=== PATIENT | male | born 1950 | race Caucasian/White ===

== ENCOUNTER 2020-06-04 11:08 | Emergency (ER) | payer OTHER ==
[~2020-06-04] VITALS: Ht 175.3 cm; Wt 70.3 kg
[2020-06-04] MEDS ORDERED: Bactrim Ds Tab1 EACH PO (11:43)
[2020-06-04] MEDS ORDERED: CEPH500 PO (11:43)
== END 2020-06-04 11:54 | disposition home or self-care (01) ==
LOC: ER 11:08
DX: L03.114 Cellulitis of left upper limb (principal); Z88.2 Allergy status to sulfonamides
CPT/HCPCS: 99283